=== PATIENT | male | born 1940 | race Caucasian/White ===

== ENCOUNTER 2022-11-25 16:21 | Emergency (ER) | payer OTHER, BC ==
[2022-11-25] MEDS ORDERED: SODIUM CHLORIDE 1,000 ML IV STA (16:49)
[2022-11-25 16:54] VITALS: BP 113/71; PULSE 60; RESP 18; TEMP 98; BMI 22.6
[2022-11-25 17:15] LABS: HEMATOCRIT 45.9 % (35.4-49); MCH 30.3 pg (25.7-33.7); MCHC 34.9 g/dl (32.0-35.9); MEAN CELL VOLUME 86.7 fl (80-96); MEAN PLT VOLUME 8.9 fl (7.5-11.1); RBC 5.29 10^6/uL (4.00-5.60); WHITE BLOOD COUNT 10.1 10^3/uL (4.0-10.8)
[2022-11-25 17:28] LABS: ALBUMIN 3.8 g/dl (3.4-5.0); BILIRUBIN,TOTAL 0.8 mg/dl (0.2-1); CALCIUM 9.3 mg/dl (8.5-10); CREATININE 1.8 mg/dl (0.55-1.3); TOT PROT 7.1 g/dl (6.4-8.2)
[2022-11-25 19:18] LABS: PLATELET ESTIMATE ADEQUATE
== END 2022-11-25 18:25 | disposition home or self-care (01) ==
LOC: FER 16:21
PROC: 3E0337Z Introduction of Electrolytic and Water Balance Substance into Peripheral Vein, Percutaneous Approach (ICD-10-PCS; principal; 2022-11-25)
DX: E86.0 Dehydration (principal)
CPT/HCPCS: 36415; 71045-TC-FY; 80053; 81003; 82550; 84443; 84484; 85027; 87086; 93005; 99285-25

== ENCOUNTER 2023-05-01 19:12 | Emergency (ER) | payer OTHER, BC ==
[2023-05-01 19:32] VITALS: TEMP 97.9; BMI 22.9
[2023-05-01 20:02] LABS: HEMATOCRIT 48.8 % (35.4-49); HEMOGLOBIN 16.8 G/dL (11.7-16.9); MCH 30.3 pg (25.7-33.7); MCHC 34.4 g/dl (32.0-35.9); MEAN CELL VOLUME 88.1 fl (80-96); MEAN PLT VOLUME 8.3 fl (7.5-11.1); PLATELET COUNT 166.4 10^3/uL (134-434); RBC 5.54 10^6/uL (4.00-5.60); RDW 14.2 % (11.9-15.9); WHITE BLOOD COUNT 8.7 10^3/uL (4.0-10.8)
[2023-05-01 20:17] LABS: ALBUMIN 4.3 g/dl (3.4-5.0); BILIRUBIN,TOTAL 0.6 mg/dl (0.2-1); BLOOD UREA NITROGEN 19.3 mg/dl (7-18); CALCIUM 9.4 mg/dl (8.5-10.1); CREATININE 1.5 mg/dl (0.6-1.3); POTASSIUM 4.5 mmol/L (3.5-5.1); SGOT/AST 19.9 U/L (15-37); SGPT/ALT 20.5 U/L (7-52); TOT PROT 7.1 g/dl (6.4-8.2)
[2023-05-01 20:25] LABS: PLATELET ESTIMATE ADEQUATE
[2023-05-01 20:51] VITALS: PULSE 59; RESP 16
[2023-05-01] MEDS ORDERED: cloNIDine HCL 0.1 MG TABLET ONE (20:52)
[2023-05-01] MEDS ORDERED: cloNIDine HCL 0.1 MG TABLET PO ONE (21:00)
[2023-05-01 21:36] VITALS: BP 140/85
== END 2023-05-01 22:01 | disposition home or self-care (01) ==
LOC: FER 19:12
DX: I10 Essential (primary) hypertension (principal); R53.1 Weakness
CPT/HCPCS: 36415; 80053; 83690; 84484; 85027; 93005; 99284-25

== ENCOUNTER 2023-05-05 17:06 | Emergency (ER) | payer OTHER, BC ==
[2023-05-05 17:25] VITALS: RESP 20; TEMP 98.2; BMI 26.5
[2023-05-05 18:37] LABS: ALBUMIN 3.9 g/dl (3.4-5.0); ALK PHOS 65 U/L (45-117); AMYLASE 75 U/L (29-103); ANION GAP 10 MMOL/L (8-16); BLOOD UREA NITROGEN 29.1 mg/dl (7-18); CALCIUM 9.1 mg/dl (8.5-10.1); CHLORIDE 107 mmol/L (98-107); CO2 25 mmol/L (21-32); CREATININE 1.6 mg/dl (0.6-1.3); GLUCOSE,RANDOM 108 mg/dl (74-106); POTASSIUM 4.3 mmol/L (3.5-5.1); SGOT/AST 15.8 U/L (15-37); SGPT/ALT 17.9 U/L (7-52); SODIUM 142 mmol/L (136-145); TOT PROT 6.4 g/dl (6.4-8.2)
[2023-05-05 18:38] LABS: HEMOGLOBIN 14.8 G/dL (11.7-16.9); MCH 29.7 pg (25.7-33.7); MCHC 33.5 g/dl (32.0-35.9); MEAN CELL VOLUME 88.5 fl (80-96); MEAN PLT VOLUME 8.7 fl (7.5-11.1); PLATELET COUNT 154.8 10^3/uL (134-434); RBC 4.97 10^6/uL (4.00-5.60); RDW 14.5 % (11.9-15.9); WHITE BLOOD COUNT 8.2 10^3/uL (4.0-10.8)
[2023-05-05 18:39] LABS: INR 1.08 (0.83-1.09); PROTHROMBIN TIME (PATIENT) 12.5 SEC (9.7-13.0)
[2023-05-05 18:42] LABS: ACTIVATED PTT 35.4 SECONDS (25.2-36.5)
[2023-05-05 19:11] LABS: PLATELET ESTIMATE ADEQUATE
[2023-05-05 19:14] LABS: LIPASE 250 U/L (73-393)
[2023-05-05 19:34] LABS: BILIRUBIN,DIRECT 0.1 mg/dL (0.0-0.2)
[2023-05-05 19:40] VITALS: PULSE 73
[2023-05-05] MEDS ORDERED: LISINOPRIL 5 MG TABLET PO ONE (19:59)
[2023-05-05] MEDS ORDERED: LISINOPRIL 5 MG TABLET ONE (20:03)
[2023-05-05 21:11] VITALS: BP 199/103
== END 2023-05-05 21:14 | disposition home or self-care (01) ==
LOC: FER 17:06
DX: R74.8 Abnormal levels of other serum enzymes (principal); R53.1 Weakness; R03.0 Elevated blood-pressure reading, without diagnosis of hypertension; R42 Dizziness and giddiness; Z20.822 Contact with and (suspected) exposure to COVID-19
CPT/HCPCS: 0241U-QW; 36415; 76705-TC; 80053; 80307; 82150; 82248; 83690; 84478; 84484; 85027; 85610; 85730; 93005; 99285-25

== ENCOUNTER 2025-03-23 21:56 | Observation (INO) | payer OTHER, BC ==
[2025-03-23] MEDS ORDERED: NITROGLYCERIN SUBLINGUAL 1/150 0.4 MG TAB ONE (22:16)
[2025-03-23] MEDS: NITROGLYCERIN SUBLINGUAL 1/200 0.3 MG BTL SL ONE (22:25)
[2025-03-23] MEDS: morphine CARPU-JECT 2 MG/1 ML DISP.SYRIN IVPUSH ONE (22:30)
[2025-03-23 22:31] LABS: ABSOLUTE IMMATURE GRANULOCYTES 0.10 x10^3/uL (0.0-0.031); BASOPHILS # 0.04 x10^3/uL (0.01-0.08); EOSINOPHIL % 4.2 % (0.8-7.0); EOSINOPHILS # 0.38 x10^3/uL (0.04-0.54); MCHC 32.9 g/dl (32.3-36.5); MEAN CELL VOLUME 88.6 fl (79.0-92.2); MEAN PLT VOLUME 10.0 fl (9.4-12.4); MONOCYTE # 0.80 x10^3/uL (0.30-0.82); MONOCYTE % 8.8 % (5.3-12.2); RDW 12.6 % (12.6-16.6)
[2025-03-23 22:54] LABS: ALK PHOS 74.0 U/L (45-117); CO2 25.0 mmol/L (21-32); CREATININE 1.8 mg/dl (0.6-1.3); GLUCOSE,RANDOM 129.0 mg/dl (74-106); SGOT/AST 15.0 U/L (15-37); SGPT/ALT 14.0 U/L (7-52); TOT PROT 6.6 g/dl (6.4-8.2)
[2025-03-23] MEDS ORDERED: DOCUSATE SODIUM 100 MG CAPSULE (FP) PO PRN (23:46)
[2025-03-24 00:22] VITALS: BMI 27.6
[2025-03-24 08:01] LABS: ABSOLUTE IMMATURE GRANULOCYTES 0.09 x10^3/uL (0.0-0.031); BASOPHILS # 0.05 x10^3/uL (0.01-0.08); EOSINOPHIL % 1.3 % (0.8-7.0); EOSINOPHILS # 0.13 x10^3/uL (0.04-0.54); MCHC 32.7 g/dl (32.3-36.5); MEAN CELL VOLUME 87.9 fl (79.0-92.2); MEAN PLT VOLUME 10.5 fl (9.4-12.4); MONOCYTE # 0.67 x10^3/uL (0.30-0.82); MONOCYTE % 6.5 % (5.3-12.2); RDW 12.6 % (12.6-16.6)
[2025-03-24 08:22] LABS: INR 1.05 (0.83-1.09); PROTHROMBIN TIME (PATIENT) 11.6 SEC (9.7-13.0)
[2025-03-24 08:25] LABS: ACTIVATED PTT 41.1 SECONDS (25.2-36.5)
[2025-03-24 08:32] LABS: CO2 24.0 mmol/L (21-32); CREATININE 1.6 mg/dl (0.6-1.3); GLUCOSE,RANDOM 124.0 mg/dl (74-106)
[2025-03-24] MEDS: LEVOTHYROXINE NA 50 MCG TABLET (FP) PO SCH (09:01)
[2025-03-24] MEDS ORDERED: MEMANTINE HCL 10 MG TABLET (FP) PO SCH (10:00)
[2025-03-24] MEDS: AZITHROMYCIN IVPB 500 MG in DEXTROSE 5%-WATER - 250 ML IVPB SCH (11:14)
[2025-03-24] MEDS: CEFTRIAXONE 1 GM in DEXTROSE 5%-WATER - 50 ML IVPB SCH (11:17)
[2025-03-24] MEDS: THIAMINE 100 MG TABLET PO SCH (11:18)
[2025-03-24] MEDS: MULTIVITAMINS (DAILY MVI) TABLET (FP) PO SCH (11:18)
[2025-03-24] MEDS: PANTOPRAZOLE 40 MG TABLET PO SCH (11:18)
[2025-03-24] MEDS: FOLIC ACID 1 MG TABLET (FP) PO SCH (11:18)
[2025-03-24] MEDS: ATORVASTATIN CA 10 MG TABLET (FP) PO SCH (21:28)
[2025-03-24] MEDS: MEMANTINE HCL 10 MG TABLET (FP) PO SCH (21:28)
[2025-03-24] MEDS: amLODIPine BESYLATE 2.5 MG TABLET (FP) PO SCH (21:28)
[2025-03-25] MEDS: LEVOTHYROXINE NA 50 MCG TABLET (FP) PO SCH (06:26)
[2025-03-25 08:28] LABS: LDL CHOLESTEROL (ONLY SJRH) 71.0 mg/dL (5-100)
[2025-03-25] MEDS: ENOXAPARIN NA (PORCINE) 40 MG/0.4 ML DISP.SYRIN SQ SCH (09:23)
[2025-03-25 09:52] LABS: N-TERMINAL BNP 89.4 pg/ml (5-450)
[2025-03-26] MEDS ORDERED: REGADENOSON 0.4 MG/5 ML PRE-FILLED SYRINGE IVPUSH ONE (09:44)
[2025-03-26] MEDS: REGADENOSON 0.4 MG/5 ML PRE-FILLED SYRINGE IVPUSH ONE (12:40)
[2025-03-26 14:27] VITALS: BP 136/95; PULSE 88; RESP 18; TEMP 97.7
== END 2025-03-26 17:30 | disposition home or self-care (01) ==
LOC: FER 21:56 → FM/S 23:38
PROC: 3E03329 Introduction of Other Anti-infective into Peripheral Vein, Percutaneous Approach (ICD-10-PCS; principal; 2025-03-23)
PROC: 3E023GC Introduction of Other Therapeutic Substance into Muscle, Percutaneous Approach (ICD-10-PCS; 2025-03-23)
PROC: 3E033NZ Introduction of Analgesics, Hypnotics, Sedatives into Peripheral Vein, Percutaneous Approach (ICD-10-PCS; 2025-03-23)
PROC: 3E033GC Introduction of Other Therapeutic Substance into Peripheral Vein, Percutaneous Approach (ICD-10-PCS; 2025-03-23)
DX: E11.22 Type 2 diabetes mellitus with diabetic chronic kidney disease (principal); I12.9 Hypertensive chronic kidney disease with stage 1 through stage 4 chronic kidney disease, or unspecified chronic kidney disease; E11.9 Type 2 diabetes mellitus without complications; R07.9 Chest pain, unspecified; E03.9 Hypothyroidism, unspecified; F32.A Depression, unspecified; Z87.891 Personal history of nicotine dependence
CPT/HCPCS: 36415; 71045-TC-FY; 78452-TC; 80048; 80053; 80061; 81003; 82550; 83036; 83735; 83880; 84100; 84439; 84443; 84484; 85025; 85610; 85730; 87637-QW; 87899; 93005; 93017; 93306-TC; 97116-GP; 97162-GP; 99285-25; A9502; G0378; J2785